=== PATIENT | male | born 1995 | race Caucasian/White ===

== ENCOUNTER 2017-10-19 12:57 | Emergency (ER) | payer OTHER ==
--- NOTE | 2017-10-19 16:11 | EDM.PDOC ---
ED HPI GENERAL MEDICAL PROBLEM - General Chief Complaint: General Stated Complaint: PERHAPS POSIONS IN FISH HOUSE Time Seen by Provider: 10/19/17 14:53 Source of Information: Reports: Patient History Limitations: Reports: No Limitations - History of Present Illness INITIAL COMMENTS - FREE TEXT/NARRATIVE: This patient came to the emergency department to have his carboxyhemoglobin checked. He was asleep during the night in a ice fishing house where another patient was believed to have from carbon monoxide poisoning. This patient presently is asymptomatic - Related Data Allergies Allergy/AdvReac Type Severity Reaction Status Date / Time No Known Allergies Allergy Verified 10/19/17 13:54 Home Meds: Home Meds Dextroamphetamine/Amphetamine [Adderall Xr 30 mg Capsule] 1 tab PO DAILY [History] Past Medical History Gastrointestinal History: Reports: GERD - Past Surgical History GI Surgical History: Reports: EGD Social & Family History - Tobacco Use Smoking Status *Q: Current Every Day Smoker Years of Tobacco use: 3 Packs/Tins Daily: 0.5 ED ROS GENERAL - Review of Systems Review Of Systems: ROS reveals no pertinent complaints other than HPI. ED EXAM, GENERAL - Physical Exam Exam: See Below Exam Limited By: No Limitations General Appearance: Alert, WD/WN Neurological: Alert, Oriented, CN II-XII Intact, Normal Cognition Psychiatric: Normal Affect, Normal Mood Skin Exam: Normal Color Course - Vital Signs Last Recorded V/S: Last Vital Signs Temp 36.9 C 10/19/17 14:01 Pulse 79 10/19/17 14:01 Resp 18 10/19/17 14:01 BP 135/88 10/19/17 14:01 Pulse Ox 96 10/19/17 14:01 - Orders/Labs/Meds Labs: Laboratory Tests 10/19/17 Range/Units 14:54 ABG Carboxyhemoglobin 4.7 H (0.0-1.6) % Departure - Departure Time of Disposition: 16:10 Disposition: Home, Self-Care 01 Condition: Fair Clinical Impression: Carbon monoxide exposure - Discharge Information Instructions: Carbon Monoxide Poisoning Referrals: PCP,None [Primary Care Provider] - Forms: ED Department Discharge Additional Instructions: Your carbon monoxide level was 4.7 which is just barely above normal. This is less than what is seen in an average smoker.
== END 2017-10-19 16:21 | disposition home or self-care (01) ==
LOC: JP.ED 12:57
DX: Z77.29 Contact with and (suspected) exposure to other hazardous substances (principal); F17.210 Nicotine dependence, cigarettes, uncomplicated
CPT/HCPCS: 82375; 99284